=== PATIENT | male | born 1975 | race Caucasian/White ===

== ENCOUNTER 2024-08-11 10:11 | Emergency (ER) | payer BC ==
[~2024-08-11] VITALS: Ht 175.3 cm; Wt 88.6 kg
[2024-08-11 10:22] VITALS: TEMP 98.6
[2024-08-11] MEDS ORDERED: NO HOME MEDS (12:03)
[2024-08-11 12:21] VITALS: BP 155/101; PULSE 88; RESP 16; O2SAT 96
[2024-08-11] MEDS ORDERED: AMOX-117 PO (12:38)
[2024-08-11] MEDS: amox tr/potassium clavulanate 875/125mg TAB PO ONE (12:47)
== END 2024-08-11 12:54 | disposition home or self-care (01) ==
LOC: ER 10:11
DX: S51.852A Open bite of left forearm, initial encounter (principal); W54.0XXA Bitten by dog, initial encounter; Y93.89 Activity, other specified; Y92.89 Other specified places as the place of occurrence of the external cause; Y99.8 Other external cause status
CPT/HCPCS: 99283

== ENCOUNTER 2025-01-15 08:08 | Emergency (ER) | payer BC ==
[~2025-01-15] VITALS: Ht 175.3 cm; Wt 85.4 kg
[~2025-01-15 08:08] MED LIST: AMOX-117 PO; NO HOME MEDS
[2025-01-15 08:14] VITALS: TEMP 97.8
[2025-01-15 08:50] LABS: BASOPHILS % (AUTO) 0.5 % (0-1); EOSINOPHILS # (AUTO) 0.1 X10'3 (0-0.9); EOSINOPHILS % (AUTO) 2.2 % (0-6); HEMATOCRIT 44.4 % (42.0-52.0); LYMPHOCYTES # (AUTO) 1.4 X10'3 (1.1-4.8); LYMPHOCYTES % (AUTO) 25.9 % (21-51); MEAN CORPUSCULAR HEMOGLOBIN 34.4 PG (27.0-31.0); MEAN CORPUSCULAR HGB CONC 33.7 g/dL (33.0-36.5); MEAN CORPUSCULAR VOLUME 102.1 FL (78-98); MEAN PLATELET VOLUME 7.9 FL (7.4-10.4); MONOCYTES # (AUTO) 0.4 X10'3 (0-0.9); NEUTROPHILS # (AUTO) 3.4 X10'3 (1.8-7.7); NEUTROPHILS % (AUTO) 63.4 % (42-75); PLATELET COUNT 239 X10'3 (140-440); RED BLOOD COUNT 4.34 X10'6 (4.70-6.10); RED CELL DISTRIBUTION WIDTH 13.4 % (11.5-14.5); WHITE BLOOD COUNT 5.4 X10'3 (4.5-11.0)
[2025-01-15 09:03] LABS: ALANINE AMINOTRANSFERASE 527 U/L (12-78); ALBUMIN 4.2 G/DL (3.4-5.0); ALBUMIN/GLOBULIN RATIO 1.2 (1.1-1.5); ALKALINE PHOSPHATASE 75 IU/L (46-116); ANION GAP 11 (8-16); ASPARTATE AMINO TRANSFERASE 600 U/L (10-37); BILIRUBIN,TOTAL 0.5 MG/DL (0.1-1.0); BLOOD UREA NITROGEN 11 MG/DL (7-18); BUN/CREATININE RATIO 15.3 (10.0-20.0); CALCIUM 8.7 MG/DL (8.5-10.1); CHLORIDE 105 MMOL/L (99-107); CREATININE 0.72 MG/DL (0.60-1.10); GLUCOSE 97 MG/DL (70-104); POTASSIUM 4.4 MMOL/L (3.5-5.1); SODIUM 143 MMOL/L (135-145); TOTAL CARBON DIOXIDE 27.5 MMOL/L (24-32); TOTAL PROTEIN 7.8 G/DL (6.4-8.2); eCRCL 125 ML/MIN; eGFR > 90 ML/MIN
[2025-01-15 10:56] VITALS: BP 141/98; PULSE 86; RESP 18; O2SAT 97
== END 2025-01-15 10:59 | disposition home or self-care (01) ==
LOC: ER 08:10
DX: S00.03XA Contusion of scalp, initial encounter (principal); R55 Syncope and collapse; K70.10 Alcoholic hepatitis without ascites; X58.XXXA Exposure to other specified factors, initial encounter; Y93.89 Activity, other specified; Y92.89 Other specified places as the place of occurrence of the external cause; Y99.8 Other external cause status
CPT/HCPCS: 36415; 80053; 84484; 85025; 93005; 99284